=== PATIENT | female | born 1935 | race Caucasian/White ===

== ENCOUNTER 2018-08-15 12:50 | Inpatient (IN) ==
[2018-08-15] MEDS ORDERED: Acetaminophen 325 MG TABLET PO PRN (16:24)
[2018-08-15] MEDS ORDERED: Albuterol 2.5 MG/3 ML NEBULIZER IH PRN (16:24)
[2018-08-15] MEDS ORDERED: Darbepoetin 150 MCG/0.3 ML SYRINGE SQ SCH (16:30)
[2018-08-15] MEDS ORDERED: WATER IV SCH (18:00)
[2018-08-15] MEDS ORDERED: CEFAZOLIN SODIUM IV SCH (18:00)
[2018-08-15] MEDS ORDERED: [UNRECOGNIZED DRUG - OTHER] IV SCH (18:00)
[2018-08-15] MEDS: Furosemide 20 MG TABLET PO SCH (20:53)
[2018-08-15] MEDS: *HR* Warfarin 2.5 MG TABLET PO SCH (21:13)
[2018-08-15] MEDS: ceFAZolin 1,000 MG in Water for inj. (sterile) 20 ML 10 ML IVP SCH (21:15)
[2018-08-15] MEDS: MOMETASONE FUROATE 100 mcg Inhaler IH SCH (22:05)
[2018-08-16] MEDS: Ipratropium/Albuterol Neb 3 ML IH PRN (00:28)
[2018-08-16] MEDS: Furosemide 20 MG TABLET PO SCH ×2 (06:30→18:20)
[2018-08-16] MEDS: ceFAZolin 1,000 MG in Water for inj. (sterile) 20 ML 10 ML IVP SCH ×2 (08:55→20:44)
[2018-08-16] MEDS: Aspirin Enteric Coated 81 MG Tablet PO SCH (08:56)
[2018-08-16] MEDS: (Tiotropium Br/Olodaterol Hcl [Stiolto Respimat Inhal) IH SCH (08:57)
[2018-08-16] MEDS: Cholecalciferol (D-3) 1,000 UNIT TABLET PO SCH (08:57)
[2018-08-16] MEDS: Diltiazem CD (24hr) 120 MG CAPSULE PO SCH (08:57)
[2018-08-16] MEDS: MOMETASONE FUROATE 100 mcg Inhaler IH SCH ×2 (09:51→22:25)
[2018-08-16] MEDS ORDERED: ceFAZolin 1,000 MG in Water for inj. (sterile) 20 ML 10 ML IVP SCH (14:00)
--- NOTE | 2018-08-16 15:31 | Internal Med History&Physical ---
Date of Encounter: 08/16/18 Time of Encounter: 14:50 Assessment and Plan (1) MSSA bacteremia Current visit: No Status: Acute She has been ordered IV cefazolin every 12 hours to complete a four-week course ending 09/12/2018. Lactobacillus will be added. (2) Diastolic heart failure Current visit: No Status: Acute Continue Lasix and labetalol. BN peptide will be monitored. Qualifiers: Heart failure chronicity: acute on chronic Qualified Code(s): I50.33 - Acute on chronic diastolic (congestive) heart failure (3) Hypertension Current visit: No Status: Chronic Continue labetalol and diltiazem. Blood pressure will be monitored. Qualifiers: Hypertension type: essential hypertension Qualified Code(s): I10 - Essential (primary) hypertension (4) Acute kidney injury superimposed on CKD Current visit: No Status: Acute Monitor renal indices. (5) PAF (paroxysmal atrial fibrillation) Current visit: No Status: Acute Presently in NSR. Continue labetalol and warfarin. (6) Anemia Current visit: No Status: Acute Anemia testing last week showed iron 35, transferrin saturation 15%, transferrin 170, ferritin 648, B12 775, and folate 16.6. Anemia likely due to chronic kidney disease. Continue Aranesp. Qualifiers: Anemia type: unspecified type Qualified Code(s): D64.9 - Anemia, unspecified (7) Weight loss Current visit: Yes Status: Acute CT of chest abdomen and pelvis will be done to follow-up on previously seen abnormalities. TSH will be ordered. (8) Hyperphosphatemia Current visit: Yes Status: Acute Phosphorus level was significantly elevated at 8.0 on 08/10/2018. Recheck in a.m. (9) Hyperuricemia Current visit: Yes Status: Acute Uric acid level was elevated at 8.5 on 01/27/2018. Recheck in a.m. Internal Medicine - H&P: HPI Chief complaint: Pneumonia and heart failure Admitted From: Intrahospital Transfer Plans for Post Hospital Care: Home History of present illness: Ms. Staples is a 82 year old female who was hospitalized at [facility] August 06-August 15 after presenting with acute respiratory failure with pneumonia/hypoxemia and diastolic heart failure. Cardiology was consulted for elevated troponin and felt she had demand ischemia. Nephrology was consulted for acute on chronic renal failure. Blood cultures showed MSSA and infectious disease diet consultant recommended she have 4 weeks IV antibiotics. (2-D echo showed no vegetations.) She was admitted to [facility] swing bed for ongoing IV antibiotic therapy. Respiratory history is significant for diagnosis of "end-stage COPD". She reports being a lifelong nonsmoker. She has used oxygen at bedtime for several years. 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 She is known to have a large hiatal hernia and paraesophageal hernia involving a large portion of the left hemithorax with multiple loops of small bowel and colon in the hernia. Cardiothoracic surgery has deferred surgery due to her poor respiratory status. She has had multiple episodes of pneumonia felt to possibly be aspiration etiology. Cardiovascular history is significant for hypertension. Echocardiogram during her recent [facility] stay showed LVEF of 55-60%. The E/A ratio was 0.6 consistent with diastolic dysfunction. There was mild tricuspid regurgitation. Estimated RVSP was elevated at 43 mmHg. The interventricular septum and posterior wall thickness measurements were 1.10 and 1.40 cm respectively. She has no history of TN and heart catheter 11/15/2017 showed no significant CAD. She denies known DVT or pulmonary embolus. She was recently diagnosed with paroxysmal atrial fibrillation and was started on warfarin. Past Med Surg Social Fam HX - Past Medical History Medical history: arthritis, asthma, CHF, COPD, GERD, hypertension, renal disease Additional medical history: HERNIATED DISK, VOCAL CORD PARESIS,ANEMIA, CKD STAGE 3,SLEEP APNEA,DIASTOLIC HEART FAILURE Psychiatric history: no psych history - Past Surgical History Surgical History: cholecystectomy, hysterectomy, orthopedic, other Additional surgical history: RIGHT KNEE REPLACEMENT -2005, VOCAL CORD EXCISION 2006 - Social History Smoking Status: Never smoker Smokeless Tobacco Status: No Alcohol use: none Drug use: none - Family History Mother Living Status: Hx Family Cancer: Yes (pancreatic cancer) Internal Medicine - H&P: Meds Lansoprazole [Prevacid] 30 mg PO QAM 11/15/17 [History] Montelukast [Singulair] 10 mg PO QPM 11/15/17 [History] Paricalcitol [Zemplar] 1 mcg PO MOWEFR 11/15/17 [History] Albuterol Neb [Proventil Neb] 2.5 mg IH QID PRN 06/14/18 [History] Albuterol Sulfate [Proair Hfa] 2 puff IH QAM PRN 06/14/18 [History] Darbepoetin Edward in Polysorbat [Aranesp] 125 mcg IJ QMONTH 06/14/18 [History] Labetalol HCl 200 mg PO BID 06/14/18 [History] Tiotropium Br/Olodaterol HCl [Stiolto Respimat Inhal [place]] 2 puff IH DAILY 06/14/18 [History] Fluticasone Propionate [Flovent Hfa] 1 puff IH BID 08/06/18 [History] Acetaminophen [Tylenol] 650 mg PO Q6HR PRN tablet 08/15/18 [Rx] Aspirin Enteric Coated [Aspirin EC] 81 mg PO DAILY #0 tablet.dr 08/15/18 [Rx] Cefazolin Sodium/Water [Cefazolin 1 G/10 ml-Water Syrg] 1 gm IV Q12HR 28 Days #56 syringe 08/15/18 [Rx] Cholecalciferol (D-3) [Vitamin D] 1,000 unit PO DAILY tablet 08/15/18 [Rx] Diltiazem CD (24hr) [Cardizem CD] 120 mg PO DAILY #7 cap.er.24h 08/15/18 [Rx] Furosemide [Lasix] 20 mg PO Q12HR #14 tablet 08/15/18 [Rx] Guaifenesin [Mucinex] 600 mg PO Q12H PRN #14 tab.er.12h 08/15/18 [Rx] Ipratropium/Albuterol Neb [Duoneb] 3 ml IH [id number] PRN inhsol 08/15/18 [Rx] Warfarin [Coumadin] 2.5 mg PO 1800 #7 tablet 08/15/18 [Rx] Allergy/AdvReac Type Severity Reaction Status Date / Time Penicillins Allergy "I SWELL Verified 08/06/18 12:58 UP" All Systems PM: A 10-system review of systems was performed and is negative for pertinent findings except as documented above in the HPI. Review of systems: Gen.: Her weight has decreased from 58.6 kg on 12/20/2017 to 49.5 kg on admission now. Cardiovascular: As per history of present illness Respiratory: As per history of present illness GI: She had laparoscopic cholecystectomy a few months ago without complications. She has paraesophageal hernia as per history of present illness. She denies disorders of her liver or exocrine pancreas : She has chronic kidney disease and follows with a [place] public health advisor. She denies other kidney or bladder disorders Neurologic: She denies large distribution strokes or seizures. Endocrine: She denies diabetes thyroid disease or hyperlipidemia Hematology/oncology: She has chronic anemia without factor deficiency likely due to chronic kidney disease. She denies known internal malignancies. She was unaware that chest CT 04/24/2018 showed multiple pulmonary nodules and abnormality of the left hepatic lobe of the liver with possible mass and upper abdominal varices. Psychiatric: She denies anxiety depression or other mental health diagnoses [place] skeletal: She has DJD but denies gout. She had left total knee replacement approximately 2006. - Constitutional Vitals: Temp Pulse Resp BP Pulse Ox 98.2 F 82 18 127/66 97 08/16/18 07:41 08/16/18 07:41 08/16/18 09:53 08/16/18 07:41 08/16/18 09:53 Exam: Gen.: She is a well-developed well-nourished female lying in a recliner chair who appears dyspneic. She has broken speech due to the dyspnea. HEENT: Head is atraumatic and normocephalic. Eyes: EOMI. There is no scleral icterus. Mouth: Mucosa is moist. Neck: Supple and nontender. There is no thyromegaly or adenopathy noted. Heart: Regular without murmurs gallops or ectopics Lungs: She has inspiratory crackles that do not clear with coughing in the right base. There is no egophony. She has prolonged expiratory phase with minimal wheezing. Abdomen: Soft and nontender. No masses or guarding are noted. Extremities: She has significant DJD changes of her hands. She has 0 to trace edema bilaterally of the dorsum of the feet and lower legs. Dorsalis pedis and posterior tibial pulses are trace palpable. Neurologic: Mental status: She is talkative and a good historian. Cranial nerve s: Smile is symmetric. Forehead wrinkles bilaterally. Tongue protrudes midline. EOMI. Motor: There is no pronator drift. Cerebellar: Finger to nose is intact bilaterally. Skin: Warm and dry
[2018-08-16] MEDS: *HR* Warfarin 2.5 MG TABLET PO SCH (18:20)
[2018-08-16] MEDS: Lactobacillus 1 EACH CAP.SPRINK PO SCH (20:43)
[2018-08-17 06:20] LABS: Basophils % 0.1 %; Eosinophils # 0.6 K/mcL (0.0-0.6); Eosinophils % 4.4 %; Hemoglobin 7.6 g/dL (11.5-15.4); Immature Granulocytes % 4.8 % (0-4); Lymphocytes # 1.1 K/mcL (0.6-4.6); Mean Corpuscular HGB Conc 30.4 g/dL (31.6-35.5); Mean Corpuscular Hemoglobin 32.1 pg (28.0-33.3); Mean Corpuscular Volume 105.5 fL (83.0-100.0); Mean Platelet Volume 10.7 fL (9.4-12.4); Monocytes % 7.3 %; Neutrophils # 10.1 K/mcL (1.6-8.9); Platelet Count 327 K/mcL (140-400); Red Blood Count 2.37 M/mcL (3.82-4.97); Red Cell Distribution Width 14.9 % (11.5-14.5); Segmented Neutrophils % 75.4 %
[2018-08-17] MEDS: Furosemide 20 MG TABLET PO SCH ×2 (06:24→17:42)
[2018-08-17 06:41] LABS: INR 2.5; Prothrombin Time 28.5 Seconds (9.4-12.1)
[2018-08-17 06:47] LABS: Phosphorous 4.8 mg/dL (2.7-4.5)
[2018-08-17 07:00] LABS: Thyroid Stimulating Hormone 1.149 mcIU/mL (0.340-5.600)
[2018-08-17] MEDS: Cholecalciferol (D-3) 1,000 UNIT TABLET PO SCH (08:43)
[2018-08-17] MEDS: ceFAZolin 1,000 MG in Water for inj. (sterile) 20 ML 10 ML IVP SCH ×2 (08:43→20:48)
[2018-08-17] MEDS: Lactobacillus 1 EACH CAP.SPRINK PO SCH ×2 (08:44→20:48)
[2018-08-17] MEDS: Diltiazem CD (24hr) 120 MG CAPSULE PO SCH (08:44)
[2018-08-17] MEDS: Aspirin Enteric Coated 81 MG Tablet PO SCH (08:44)
[2018-08-17] MEDS: (Tiotropium Br/Olodaterol Hcl [Stiolto Respimat Inhal) IH SCH (08:44)
--- NOTE | 2018-08-17 10:33 | Internal Med Progress Note ---
Date of Encounter: 08/17/18 Time of Encounter: 10:25 - Assessment and plan (1) MSSA bacteremia Current Visit: No Status: Acute Assessment and plan: August 17. Continue IV Kefzol and lactobacillus through 09/12/2018. (2) Diastolic heart failure Current Visit: No Status: Acute Assessment and plan: August 17. Continue Lasix and labetalol. BN peptide was 202 today. Qualifiers: Heart failure chronicity: acute on chronic Qualified Code(s): I50.33 - Acute on chronic diastolic (congestive) heart failure (3) Hypertension Current Visit: No Status: Chronic Assessment and plan: August 17. Continue labetalol and diltiazem Qualifiers: Hypertension type: essential hypertension Qualified Code(s): I10 - Essential (primary) hypertension (4) Acute kidney injury superimposed on CKD Current Visit: No Status: Acute Assessment and plan: August 17. Monitor renal indices. (5) PAF (paroxysmal atrial fibrillation) Current Visit: No Status: Acute Assessment and plan: August 17. Continue labetalol and Coumadin (6) Anemia Current Visit: No Status: Acute Assessment and plan: August 17. Continue Aranesp. Discontinue aspirin. She denies being on this at home. Qualifiers: Anemia type: unspecified type Qualified Code(s): D64.9 - Anemia, unspecified (7) Weight loss Current Visit: Yes Status: Acute Assessment and plan: August 17. Chest/abdomen/pelvis CT showed no evidence of malignancy. TSH was normal at 1.149. (8) Hyperphosphatemia Current Visit: Yes Status: Acute Assessment and plan: August 17. Phosphorus level minimally elevated at 4.8. Continue to monitor periodically. (9) Hyperuricemia Current Visit: Yes Status: Acute Assessment and plan: August 17. Uric acid level elevated at 10.0. Start low-dose allopurinol (10) Pneumonia Current Visit: No Status: Acute Assessment and plan: August 17. Chest CT showed improvement in the mid and upper lungs but worsening consolidation of the right lower lobe compared to 09/04/2018. Continue IV Kefzol and monitor labs. Qualifiers: Pneumonia type: aspiration pneumonia Aspiration pneumonia type: due to regurgitated food Laterality: right Lung location: lower lobe of lung Qualified Code(s): J69.0 - Pneumonitis due to inhalation of food and vomit - Subjective Interval history: August 17. She has no new complaints. - Constitutional Vitals: Temp Pulse Resp BP Pulse Ox 98.4 F 76 28 110/64 92 08/17/18 06:46 08/17/18 06:46 08/17/18 06:46 08/17/18 06:46 08/17/18 06:46 Exam: She is resting comfortably in a chair at bedside wearing oxygen. Her speech is broken because of dyspnea. I reviewed her medications, lab results, and CT report. Internal Medicine: Result - Labs CBC & Chem 7: 08/17/18 05:30 Labs: Short CBC 08/17/18 Range/Units 05:30 WBC 13.4 H (4.3-11.1) K/mcL Hgb 7.6 L (11.5-15.4) g/dL Hct 25.0 L (35.3-44.9) % Plt Count 327 (140-400) K/mcL Neutrophils # 10.1 H (1.6-8.9) K/mcL - ABG Interpretation ABG results: PT/INR, D-dimer PT 28.5 Seconds (9.4-12.1) H 08/17/18 05:30 - Impressions Impressions Abdomen/Pelvis CT 08/16/18 15:47 IMPRESSION: No acute abnormality in the abdomen or pelvis. Lobulation at the dome of the liver, likely related to indentation by the diaphragm. No discrete liver mass. Bilateral renal cysts, with the largest measuring up to 8 cm in the right kidney. These findings are benign. Airspace opacities at the right lung base, likely related to pneumonia versus pulmonary edema, mildly increased since August 05, 2018 at the right lung base. Large hiatal hernia and large paraesophageal hernia containing loops of small and large bowel occupying large portion of the left hemithorax, with rightward displacement of the heart, stable. Prominent main pulmonary artery size, likely related to pulmonary hypertension. D/ / Moses Grigsby MD / Moses Grigsby MD Interpreting Provider: Moses Grigsby MD Chest CT 08/16/18 15:48 IMPRESSION: Large left diaphragmatic hernia again noted. Patchy regions of consolidation and ground-glass appear improved in the mid and upper lungs but there is worsening consolidation the right lower lobe. D/ / Wanda Tracy MD / Wanda Tracy MD Interpreting Provider: Wanda Tracy MD Consult Discharge Plan - Plan Referrals: NONE,PCP [Primary Care Provider] - 1 week
[2018-08-17] MEDS: MOMETASONE FUROATE 100 mcg Inhaler IH SCH ×2 (11:09→22:43)
[2018-08-17] MEDS: Ipratropium/Albuterol Neb 3 ML IH PRN (17:39)
[2018-08-17] MEDS: *HR* Warfarin 2.5 MG TABLET PO SCH (17:45)
[2018-08-18] MEDS: (Tiotropium Br/Olodaterol Hcl [Stiolto Respimat Inhal) IH SCH (09:38)
[2018-08-18] MEDS: Cholecalciferol (D-3) 1,000 UNIT TABLET PO SCH (09:38)
[2018-08-18] MEDS: Diltiazem CD (24hr) 120 MG CAPSULE PO SCH (09:38)
[2018-08-18] MEDS: Lactobacillus 1 EACH CAP.SPRINK PO SCH ×2 (09:38→20:37)
[2018-08-18] MEDS: Furosemide 20 MG TABLET PO SCH ×2 (09:38→18:23)
[2018-08-18] MEDS: ceFAZolin 1,000 MG in Water for inj. (sterile) 20 ML 10 ML IVP SCH ×2 (09:39→20:38)
[2018-08-18] MEDS: MOMETASONE FUROATE 100 mcg Inhaler IH SCH ×2 (13:55→22:58)
[2018-08-18] MEDS: *HR* Warfarin 2.5 MG TABLET PO SCH (18:23)
[2018-08-19] MEDS: Furosemide 20 MG TABLET PO SCH ×2 (06:52→17:50)
[2018-08-19] MEDS: Lactobacillus 1 EACH CAP.SPRINK PO SCH ×2 (10:00→20:31)
[2018-08-19] MEDS: (Tiotropium Br/Olodaterol Hcl [Stiolto Respimat Inhal) IH SCH (10:01)
[2018-08-19] MEDS: Diltiazem CD (24hr) 120 MG CAPSULE PO SCH (10:01)
[2018-08-19] MEDS: Cholecalciferol (D-3) 1,000 UNIT TABLET PO SCH (10:01)
[2018-08-19] MEDS: ceFAZolin 1,000 MG in Water for inj. (sterile) 20 ML 10 ML IVP SCH ×2 (10:03→20:32)
[2018-08-19] MEDS: MOMETASONE FUROATE 100 mcg Inhaler IH SCH ×2 (10:04→22:54)
[2018-08-19] MEDS: Ondansetron ODT 4 MG TAB.RAPDIS SL PRN ×2 (12:50→17:55)
[2018-08-19] MEDS: *HR* Warfarin 2.5 MG TABLET PO SCH (17:50)
[2018-08-20] MEDS: Furosemide 20 MG TABLET PO SCH ×2 (05:26→17:10)
[2018-08-20 07:54] VITALS: BP 111/59
[2018-08-20] MEDS: Ipratropium/Albuterol Neb 3 ML IH PRN (09:29)
[2018-08-20] MEDS: MOMETASONE FUROATE 100 mcg Inhaler IH SCH (09:32)
[2018-08-20] MEDS: ceFAZolin 1,000 MG in Water for inj. (sterile) 20 ML 10 ML IVP SCH (09:37)
[2018-08-20] MEDS: Diltiazem CD (24hr) 120 MG CAPSULE PO SCH (09:37)
[2018-08-20] MEDS: Lactobacillus 1 EACH CAP.SPRINK PO SCH (09:37)
[2018-08-20] MEDS: Cholecalciferol (D-3) 1,000 UNIT TABLET PO SCH (09:37)
[2018-08-20] MEDS: (Tiotropium Br/Olodaterol Hcl [Stiolto Respimat Inhal) IH SCH (09:38)
[2018-08-20 10:23] LABS: Basophils % 0.1 %; Eosinophils # 0.2 K/mcL (0.0-0.6); Eosinophils % 1.3 %; Hematocrit 24.5 % (35.3-44.9); Hemoglobin 7.5 g/dL (11.5-15.4); Immature Granulocytes % 1.5 % (0-4); Lymphocytes # 0.9 K/mcL (0.6-4.6); Lymphocytes % 5.9 %; Mean Corpuscular HGB Conc 30.6 g/dL (31.6-35.5); Mean Corpuscular Hemoglobin 31.9 pg (28.0-33.3); Mean Corpuscular Volume 104.3 fL (83.0-100.0); Mean Platelet Volume 10.1 fL (9.4-12.4); Monocytes # 1.3 K/mcL (0.0-1.3); Monocytes % 8.4 %; Platelet Count 346 K/mcL (140-400); Red Blood Count 2.35 M/mcL (3.82-4.97); Red Cell Distribution Width 14.4 % (11.5-14.5); Segmented Neutrophils % 82.8 %
[2018-08-20 10:27] LABS: Neutrophils # 13.2 K/mcL (1.6-8.9)
[2018-08-20 10:31] LABS: Calcium 9.5 mg/dL (8.6-10.3); Potassium 3.9 mEq/L (3.5-5.1)
[2018-08-20 11:49] LABS: INR 3.3; Prothrombin Time 37.3 Seconds (9.4-12.1)
[2018-08-20] MEDS ORDERED: Aminoglycoside Consult 1 EACH MC ONE (12:00)
[2018-08-20] MEDS ORDERED: Levofloxacin 750 MG/150 ML 750 MG/150 ML BAG IVPB SCH (12:00)
--- NOTE | 2018-08-20 16:03 | Discharge Summary ---
Orders not resulted at time of discharge: Pending orders 08/20/18 10:50 Urinalysis Reflex Cult & Micro [URIN] Stat 08/20/18 11:26 Culture,Blood [BC] Stat Date of Encounter: 08/20/18 Time of Encounter: 15:00 - Discharge Diagnosis (1) Pneumonia Priority: Primary Status: Acute Qualifiers: Pneumonia type: aspiration pneumonia Aspiration pneumonia type: due to regurgitated food Laterality: right Lung location: lower lobe of lung Qualified Code(s): J69.0 - Pneumonitis due to inhalation of food and vomit (2) MSSA bacteremia Priority: Secondary Status: Acute (3) Diastolic heart failure Priority: Secondary Status: Acute Qualifiers: Heart failure chronicity: acute on chronic Qualified Code(s): I50.33 - Acute on chronic diastolic (congestive) heart failure (4) Hypertension Priority: Secondary Status: Chronic Qualifiers: Hypertension type: essential hypertension Qualified Code(s): I10 - Essential (primary) hypertension (5) Acute kidney injury superimposed on CKD Priority: Secondary Status: Acute (6) PAF (paroxysmal atrial fibrillation) Priority: Secondary Status: Acute (7) Anemia Priority: Secondary Status: Acute Qualifiers: Anemia type: unspecified type Qualified Code(s): D64.9 - Anemia, unspecified (8) Weight loss Priority: Secondary Status: Chronic (9) Hyperphosphatemia Priority: Secondary Status: Acute (10) Hyperuricemia Priority: Secondary Status: Acute Hospital course: Ms. Staples is a 82 year old female who was hospitalized at [facility] August 06-August 15 after presenting with acute respiratory failure with pneumonia/hypoxemia and diastolic heart failure. Cardiology was consulted for elevated troponin and felt she had demand ischemia. Nephrology was consulted for acute on chronic renal failure. Blood cultures showed MSSA and infectious disease middleware consultant recommended she have 4 weeks IV antibiotics. (2-D echo showed no vegetations.) She was admitted to [facility] swing bed for ongoing IV antibiotic therapy. Initial orders were written by the discharging physicians at [facility]. I saw her on August 16 and performed the swing bed history and physical. IV Ancef and lactobacillus were continued as ordered at discharge. Chest CT was done on August 16 to further evaluate her reported 20 pound weight loss, previously seen lung nodules and possible liver mass. There was patchy consolidation improved in the mid and upper lung but worsening consolidation of the right lower lobe. No liver mass was seen. On August 20 she developed worsening respiratory status. WBC showed rise to 15.9 with left shift present. Chest x-ray showed moderate diffuse airspace opacities throughout the right lung as well as left upper lobe. Cultures were drawn and she was started on vancomycin and Levaquin in addition to Ancef. She required BiPAP to maintain satisfactory oxygenation. I explained to her that I felt she needed to be transferred to a different facility if she chose to remain full code because of potential further worsening of her respiratory status. After deliberation and discussion with family she agreed to go to [facility]. I explained to her she could likely return to [facility] for swing bed to complete the course of IV Ancef for MSSA after improvement from her pneumonia. - Time Spent with Patient Total time spent providing and/or coordinating discharge services: - Discharge Medications Prescriptions: No Action Montelukast [Singulair] 10 mg PO QPM Lansoprazole [Prevacid] 30 mg PO QAM Paricalcitol [Zemplar] 1 mcg PO MOWEFR Albuterol Neb [Proventil Neb] 2.5 mg IH QID PRN PRN Reason: Shortness Of Breath Labetalol HCl 200 mg PO BID Tiotropium Br/Olodaterol HCl [Stiolto Respimat Inhal [place]] 2 puff IH DAILY Albuterol Sulfate [Proair Hfa] 2 puff IH QAM PRN PRN Reason: Shortness Of Breath Darbepoetin Edward in Polysorbat [Aranesp] 125 mcg IJ QMONTH Fluticasone Propionate [Flovent Hfa] 1 puff IH BID Aspirin Enteric Coated [Aspirin EC] 81 mg PO DAILY #0 tablet. Diltiazem CD (24hr) [Cardizem CD] 120 mg PO DAILY #7 cap.er.24h Warfarin [Coumadin] 2.5 mg PO 1800 #7 tablet Ipratropium/Albuterol Neb [Duoneb] 3 ml IH [id number] PRN inhsol PRN Reason: Wheezing Furosemide [Lasix] 20 mg PO Q12HR #14 tablet Acetaminophen [Tylenol] 650 mg PO Q6HR PRN tablet PRN Reason: Mild Pain/Fever Cholecalciferol (D-3) [Vitamin D] 1,000 unit PO DAILY tablet Guaifenesin [Mucinex] 600 mg PO Q12H PRN #14 tab.er.12h PRN Reason: Congestion Cefazolin Sodium/Water [Cefazolin 1 G/10 ml-Water Syrg] 1 gm IV Q12HR 28 Days #56 syringe Home Medications: Lansoprazole [Prevacid] 30 mg PO QAM 11/15/17 [History] Montelukast [Singulair] 10 mg PO QPM 11/15/17 [History] Paricalcitol [Zemplar] 1 mcg PO MOWEFR 11/15/17 [History] Albuterol Neb [Proventil Neb] 2.5 mg IH QID PRN 06/14/18 [History] Albuterol Sulfate [Proair Hfa] 2 puff IH QAM PRN 06/14/18 [History] Darbepoetin Edward in Polysorbat [Aranesp] 125 mcg IJ QMONTH 06/14/18 [History] Labetalol HCl 200 mg PO BID 06/14/18 [History] Tiotropium Br/Olodaterol HCl [Stiolto Respimat Inhal [place]] 2 puff IH DAILY 06/14/18 [History] Fluticasone Propionate [Flovent Hfa] 1 puff IH BID 08/06/18 [History] Acetaminophen [Tylenol] 650 mg PO Q6HR PRN tablet 08/15/18 [Rx] Aspirin Enteric Coated [Aspirin EC] 81 mg PO DAILY #0 tablet. 08/15/18 [Rx] Cefazolin Sodium/Water [Cefazolin 1 G/10 ml-Water Syrg] 1 gm IV Q12HR 28 Days #56 syringe 08/15/18 [Rx] Cholecalciferol (D-3) [Vitamin D] 1,000 unit PO DAILY tablet 08/15/18 [Rx] Diltiazem CD (24hr) [Cardizem CD] 120 mg PO DAILY #7 cap.er.24h 08/15/18 [Rx] Furosemide [Lasix] 20 mg PO Q12HR #14 tablet 08/15/18 [Rx] Guaifenesin [Mucinex] 600 mg PO Q12H PRN #14 tab.er.12h 08/15/18 [Rx] Ipratropium/Albuterol Neb [Duoneb] 3 ml IH [id number] PRN inhsol 08/15/18 [Rx] Warfarin [Coumadin] 2.5 mg PO 1800 #7 tablet 08/15/18 [Rx] Allergies/Adverse Reactions: Allergy/AdvReac Type Severity Reaction Status Date / Time Penicillins Allergy "I SRIDHARLL Verified 08/06/18 12:58 UP" Date of admission: 08/15/18 17:54 Primary care physician: Trevin Garcia M.D. Consults: 08/15/18 16:20 Consult to Speech Therapy [CONS] Routine Comment: Evaluate, develop and implement POC Reason for Consult: Evaluate, develop and implement POC Call Completed: No 08/15/18 16:21 Consult to Occupational Therapy [CONS] Routine Comment: Evaluate, develop and implement POC Reason for Consult: Evaluate, develop and implement POC Does patient have active BEDREST order?: No Is patient medically & hemodynamically stable?: Yes Patient assessed for mobility or mobilized this visit?: No Consult to Physical Therapy [CONS] Routine Comment: Evaluate, develop and implement POC Reason for Consult: Evaluate, develop and implement POC Does patient have active BEDREST order?: No Is patient medically & hemodynamically stable?: Yes Patient assessed for mobility or mobilized this visit?: No Consult to Furniture Associate [CONS] Routine Reason for SW Consult: swing bed 08/15/18 18:23 Consult to Nutrition [CONS] Routine Comment: Consulting Provider: NUTRITION Reason for Dietary Consult: MST Score - Constitutional Vitals: Temp Pulse Resp BP Pulse Ox 99.4 F 78 22 111/59 92 08/20/18 07:53 08/20/18 07:53 08/20/18 09:29 08/20/18 07:53 08/20/18 10:08 - Patient Status Disposition: Transfer Other - Discharge Instructions
[2018-08-20] MEDS: *HR* Warfarin 2.5 MG TABLET PO SCH (17:10)
[2018-08-27] MEDS ORDERED: Darbepoetin 150 MCG/0.3 ML SYRINGE SQ SCH (09:00)
== END 2018-08-20 18:10 | disposition other institution (70) | DRG 177 ==
LOC: INPPIK 17:54
PROVIDERS: ADMIT Internal Medicine; ATTEND Internal Medicine

== ENCOUNTER 2018-08-23 13:32 | Inpatient (IN) ==
[2018-08-23] MEDS ORDERED: Acetaminophen 325 MG TABLET PO PRN (16:13)
[2018-08-23] MEDS ORDERED: DARBEPOETIN ALFA IJ SCH (16:15)
[2018-08-23] MEDS ORDERED: levoFLOXacin 500 MG TABLET PO SCH (16:15)
[2018-08-23] MEDS ORDERED: [UNRECOGNIZED DRUG - OTHER] IJ SCH (16:15)
[2018-08-23] MEDS ORDERED: CEFAZOLIN SODIUM IV SCH (18:00)
[2018-08-23] MEDS ORDERED: WATER IV SCH (18:00)
[2018-08-23] MEDS ORDERED: [UNRECOGNIZED DRUG - OTHER] IV SCH (18:00)
[2018-08-23] MEDS: ceFAZolin 1,000 MG in Water for inj. (sterile) 20 ML 10 ML IVP SCH (18:39)
[2018-08-23] MEDS: Furosemide 20 MG TABLET PO SCH (18:39)
[2018-08-23] MEDS: *HR* Warfarin 2.5 MG TABLET PO SCH (18:39)
[2018-08-23] MEDS ORDERED: NON-FORMULARY MEDICATION 1 EACH EACH (Fluticasone Propionate [Flovent Hfa] 1 PUFF) IH SCH (21:00)
[2018-08-23] MEDS: MOMETASONE FUROATE 100 mcg Inhaler IH SCH (22:23)
[2018-08-24 05:30] LABS: Basophils % 0.1 %; Hematocrit 24.2 % (35.3-44.9); Hemoglobin 7.7 g/dL (11.5-15.4); Immature Granulocytes % 1.6 % (0-4); Lymphocytes # 0.7 K/mcL (0.6-4.6); Lymphocytes % 3.4 %; Mean Corpuscular HGB Conc 31.8 g/dL (31.6-35.5); Mean Corpuscular Hemoglobin 31.8 pg (28.0-33.3); Mean Platelet Volume 10.2 fL (9.4-12.4); Monocytes # 0.5 K/mcL (0.0-1.3); Monocytes % 2.5 %; Platelet Count 256 K/mcL (140-400); Red Blood Count 2.42 M/mcL (3.82-4.97); Red Cell Distribution Width 15.3 % (11.5-14.5); Segmented Neutrophils % 92.4 %
[2018-08-24 05:36] LABS: Neutrophils # 17.6 K/mcL (1.6-8.9)
[2018-08-24 05:44] LABS: INR 3.3; Prothrombin Time 37.2 Seconds (9.4-12.1)
[2018-08-24 05:46] LABS: Activated Partial Thrombo Time 44.2 Seconds (26.0-36.0)
[2018-08-24 05:56] LABS: Calcium 8.8 mg/dL (8.6-10.3)
[2018-08-24] MEDS: ceFAZolin 1,000 MG in Water for inj. (sterile) 20 ML 10 ML IVP SCH ×2 (06:24→17:29)
[2018-08-24] MEDS: Furosemide 20 MG TABLET PO SCH (06:25)
[2018-08-24] MEDS: Ipratropium/Albuterol Neb 3 ML IH PRN ×2 (07:41→23:45)
[2018-08-24] MEDS: MOMETASONE FUROATE 100 mcg Inhaler IH SCH ×2 (07:41→21:11)
[2018-08-24] MEDS: Aspirin Enteric Coated 81 MG Tablet PO SCH (08:59)
[2018-08-24] MEDS: Cholecalciferol (D-3) 1,000 UNIT TABLET PO SCH (08:59)
[2018-08-24] MEDS: Diltiazem CD (24hr) 120 MG CAPSULE PO SCH (08:59)
[2018-08-24] MEDS: predniSONE 10 MG TABLET PO SCH (08:59)
[2018-08-24] MEDS ORDERED: predniSONE 10 MG TABLET PO SCH ×2 (09:00)
--- NOTE | 2018-08-24 11:29 | Internal Med History&Physical ---
Date of Encounter: 08/24/18 Time of Encounter: 11:00 Assessment and Plan (1) MSSA bacteremia Current visit: No Status: Acute Continue IV Kefzol with lactobacillus through 09/12/2018. (2) Pneumonia Current visit: No Status: Acute Continue Levaquin 500 milligrams q48h through 08/30/2018. Qualifiers: Pneumonia type: aspiration pneumonia Aspiration pneumonia type: due to regurgitated food Laterality: right Lung location: lower lobe of lung Qualified Code(s): J69.0 - Pneumonitis due to inhalation of food and vomit (3) Diastolic heart failure Current visit: No Status: Acute Continue labetalol and remain off Lasix. BN peptide improved to 317 today. Continue to monitor. Qualifiers: Heart failure chronicity: acute on chronic Qualified Code(s): I50.33 - Acute on chronic diastolic (congestive) heart failure (4) Hypertension Current visit: No Status: Chronic Continue labetalol and diltiazem. Qualifiers: Hypertension type: essential hypertension Qualified Code(s): I10 - Essential (primary) hypertension (5) Acute kidney injury superimposed on CKD Current visit: No Status: Acute Monitor renal indices. (6) PAF (paroxysmal atrial fibrillation) Current visit: No Status: Acute Presently in NSR. Continue labetalol and warfarin. (7) Anemia Current visit: No Status: Acute Anemia testing in July showed iron 35, transferrin saturation 15%, transferrin 170, ferritin 648, B12 775, and folate 16.6. Anemia likely due to chronic kidney disease. Continue Aranesp. Qualifiers: Anemia type: unspecified type Qualified Code(s): D64.9 - Anemia, unspecified (8) Hyperuricemia Current visit: No Status: Acute Uric acid level was 10.0 on 08/17/2018. Continue allopurinol. Internal Medicine - H&P: HPI Chief complaint: Dyspnea, MSSA infection Admitted From: Hospital to Hospital Transfer Plans for Post Hospital Care: Home History of present illness: Ms. Staples is a 82 year old female who returned to [facility] swing bed yesterday following a August 20- hospitalization at [facility] for worsening respiratory status. She had previously been in [facility] swing bed August 16- following an [facility] hospitalization August 06-August 16 for respiratory failure, pneumonia hypoxemia, and diastolic heart failure. During her most recent [facility] stay she had pulmonary consult with bronchoscopy 08/22/2018 showing possible aspiration but no significant infection. She was discharged on oral Levaquin in addition to ongoing IV Kefzol for MSSA infection documented on previous [facility] hospitalization. She was seen by nephrology for worsening renal function and it was recommended Lasix be discontinued. Past Med Surg Social Fam HX - Past Medical History Medical history: arthritis, asthma, CHF, COPD, GERD, hypertension, renal disease Additional medical history: HERNIATED DISK, VOCAL CORD PARESIS,ANEMIA, CKD STAGE 3,SLEEP APNEA,DIASTOLIC HEART FAILURE Psychiatric history: no psych history - Past Surgical History Surgical History: cholecystectomy, hysterectomy, orthopedic, other Additional surgical history: RIGHT KNEE REPLACEMENT -2005, VOCAL CORD EXCISION 2006 - Social History Smoking Status: Never smoker Smokeless Tobacco Status: No Alcohol use: none Drug use: none - Family History Mother Living Status: Hx Family Cancer: Yes (pancreatic cancer) Internal Medicine - H&P: Meds Lansoprazole [Prevacid] 30 mg PO QAM 11/15/17 [History] Montelukast [Singulair] 10 mg PO QPM 11/15/17 [History] Paricalcitol [Zemplar] 1 mcg PO MOWEFR 11/15/17 [History] Albuterol Neb [Proventil Neb] 2.5 mg IH QID PRN 06/14/18 [History] Albuterol Sulfate [Proair Hfa] 2 puff IH Q6H PRN 06/14/18 [History] Darbepoetin Edward in [place]ysorbat [Aranesp] 125 mcg IJ QMONTH 06/14/18 [History] Labetalol HCl 200 mg PO BID 06/14/18 [History] Tiotropium Br/Olodaterol HCl [Stiolto Respimat Inhal Drayton] 2 puff IH DAILY 06/14/18 [History] Fluticasone Propionate [Flovent Hfa] 1 puff IH BID 08/06/18 [History] Acetaminophen [Tylenol] 650 mg PO Q6HR PRN tablet 08/15/18 [Rx] Aspirin Enteric Coated [Aspirin EC] 81 mg PO DAILY #0 tablet. 08/15/18 [Rx] Cefazolin Sodium/Water [Cefazolin 1 G/10 ml-Water Syrg] 1 gm IV Q12HR 28 Days #56 syringe 08/15/18 [Rx] Cholecalciferol (D-3) [Vitamin D] 1,000 unit PO DAILY tablet 08/15/18 [Rx] Diltiazem CD (24hr) [Cardizem CD] 120 mg PO DAILY #7 cap.er.24h 08/15/18 [Rx] Furosemide [Lasix] 20 mg PO Q12HR #14 tablet 08/15/18 [Rx] Guaifenesin [Mucinex] 600 mg PO Q12H PRN #14 tab.er.12h 08/15/18 [Rx] Ipratropium/Albuterol Neb [Duoneb] 3 ml IH [id number] PRN inhsol 08/15/18 [Rx] Warfarin [Coumadin] 2.5 mg PO 1800 #7 tablet 08/15/18 [Rx] levoFLOXacin [Levaquin] 500 mg PO Q48H #4 tablet 08/23/18 [Rx] predniSONE [PredniSONE] See Taper PO DAILY 7 Days #30 tablet 08/23/18 [Rx] Allergy/AdvReac Type Severity Reaction Status Date / Time Penicillins Allergy "I SRIDHARLL Verified 08/06/18 12:58 UP" All Systems PM: A 10-system review of systems was performed and is negative for pertinent findings except as documented above in the HPI. Review of systems: Review of systems from her recent [facility] swing bed admission were reviewed and revised as below. Gen.: Her weight has increased from 58.6 kg on 12/20/2017 to 59.137 kg on admission now. Cardiovascular: She has history of hypertension. Echocardiogram 08/06/2018 showed LVEF of 55-60%. The E/A ratio was 0.6 consistent with diastolic dysfunction. There was mild tricuspid regurgitation. Estimated RVSP was elevated at 43 mmHg. The interventricular septum and posterior wall thickness measurements were 1.10 and 1.40 cm respectively. She has no history of SC and heart catheter 11/15/2017 showed no significant CAD. She denies known DVT or pulmonary embolus. She was recently diagnosed with paroxysmal atrial fibrillation and was started on warfarin. Respiratory: She has a diagnosis of "end-stage COPD". She reports being a lifelong nonsmoker. She has used oxygen at bedtime for several years. 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 She is known to have a large hiatal hernia and paraesophageal hernia involving a large portion of the left hemithorax with multiple loops of small bowel and colon in the hernia. Cardiothoracic surgery has deferred surgery due to her poor respiratory status. She has had multiple episodes of pneumonia felt to possibly be aspiration etiology. Chest CT 08/15/2018 showed patchy consolidation and groundglass appearance improved in the mid and upper lungs but worsening consolidation of the right lower lobe compared to 08/05/2018 CT. Large left diaphragmatic hernia was noted. No worrisome masses or lymphadenopathy was seen. GI: She had laparoscopic cholecystectomy a few months ago without complications. She has a paraesophageal hernia as above. She denies disorders of her liver or exocrine pancreas : She has chronic kidney disease and follows with a [employer] band cutter. She denies other kidney or bladder disorders Neurologic: She denies large distribution strokes or seizures. Endocrine: She denies diabetes thyroid disease or hyperlipidemia Hematology/oncology: She has chronic anemia without factor deficiency likely due to chronic kidney disease. She denies known internal malignancies. Psychiatric: She denies anxiety depression or other mental health diagnoses [place] skeletal: She has DJD but denies gout. She had left total knee replacement approximately 2006. - Constitutional Vitals: Temp Pulse Resp BP Pulse Ox 97.5 F L 72 18 133/76 97 08/24/18 07:32 08/24/18 07:32 08/24/18 07:42 08/24/18 07:32 08/24/18 07:42 Exam: Gen.: She is a well-developed well-nourished female sitting in a chair at bedside who appears slightly dyspneic. She was wearing oxygen by mask HEENT: Head is atraumatic and normocephalic. Eyes: EOMI. There is no scleral icterus. Mouth: Mucosa is moist. Neck: Supple and nontender. There is no thyromegaly or adenopathy noted. Heart: Regular without murmurs gallops or ectopics Lungs: She has diminished breath sounds diffusely. The right posterior lung field shows tubular breath sounds. No expiratory wheezing is heard. Abdomen: Soft and nontender. Exam is limited because she is in the seated posi tion. Extremities: She has no edema of the dorsum of the feet. She has 1+ edema of the lower legs above the sock margin. Dorsalis pedis and posterior tibial pulses are trace to 1+ palpable bilaterally. She has significant DJD changes of her hands. Neurologic: Mental status: She is talkative and seems to be a good historian. Cranial nerves: Smile is symmetric. Forehead wrinkles bilaterally. Tongue protrudes midline. EOMI. Motor: There is no pronator drift. Cerebellar: Finger to nose is intact bilaterally. Skin: Warm and dry Internal Med - H&P Results - Labs CBC & Chem 7: 08/24/18 05:00 08/24/18 05:00 Labs: Short CBC 08/24/18 Range/Units 05:00 WBC 19.0 H (4.3-11.1) K/mcL Hgb 7.7 L (11.5-15.4) g/dL Hct 24.2 L (35.3-44.9) % Plt Count 256 (140-400) K/mcL Neutrophils # 17.6 H (1.6-8.9) K/mcL BMP 08/24/18 05:00 Sodium 138 Potassium 4.0 Chloride 96 L Carbon Dioxide 32 H BUN 114 H Creatinine 3.37 H Glucose 129 H Calcium 8.8
[2018-08-24] MEDS: Tiotropium Br/Olodaterol Hcl [Stiolto Respimat Inhal IH SCH (11:33)
[2018-08-24] MEDS: Lactobacillus 1 EACH CAP.SPRINK PO SCH (19:30)
[2018-08-25] MEDS: ceFAZolin 1,000 MG in Water for inj. (sterile) 20 ML 10 ML IVP SCH ×2 (06:44→17:11)
[2018-08-25] MEDS: MOMETASONE FUROATE 100 mcg Inhaler IH SCH ×2 (09:30→19:33)
[2018-08-25] MEDS: Ipratropium/Albuterol Neb 3 ML IH PRN ×2 (09:33→13:24)
[2018-08-25] MEDS: Cholecalciferol (D-3) 1,000 UNIT TABLET PO SCH (09:56)
[2018-08-25] MEDS: predniSONE 10 MG TABLET PO SCH (09:56)
[2018-08-25] MEDS: Lactobacillus 1 EACH CAP.SPRINK PO SCH ×2 (09:56→20:58)
[2018-08-25] MEDS: Aspirin Enteric Coated 81 MG Tablet PO SCH (09:57)
[2018-08-25] MEDS: Diltiazem CD (24hr) 120 MG CAPSULE PO SCH (09:57)
[2018-08-25] MEDS: levoFLOXacin 500 MG TABLET PO SCH (09:57)
[2018-08-25] MEDS: Tiotropium Br/Olodaterol Hcl [Stiolto Respimat Inhal IH SCH (16:31)
--- NOTE | 2018-08-25 18:51 | Internal Med Progress Note ---
Date of Encounter: 08/25/18 Time of Encounter: 18:40 - Assessment and plan (1) MSSA bacteremia Current Visit: No Status: Acute Assessment and plan: August 25. Continue IV With Lactobacillus through 09/12/2018. (2) Pneumonia Current Visit: No Status: Acute Assessment and plan: August 25. Continue q.o.d. Levaquin through 08/30/2018. Qualifiers: Pneumonia type: aspiration pneumonia Aspiration pneumonia type: due to regurgitated food Laterality: right Lung location: lower lobe of lung Qualified Code(s): J69.0 - Pneumonitis due to inhalation of food and vomit (3) Diastolic heart failure Current Visit: No Status: Acute Assessment and plan: August 25. Continue labetalol and remain off Lasix due to acute on chronic renal failure. Check BN peptide and other labs in a.m. Qualifiers: Heart failure chronicity: acute on chronic Qualified Code(s): I50.33 - Acute on chronic diastolic (congestive) heart failure (4) Hypertension Current Visit: No Status: Chronic Assessment and plan: August 25. Continue labetalol and diltiazem Qualifiers: Hypertension type: essential hypertension Qualified Code(s): I10 - Essential (primary) hypertension (5) Acute kidney injury superimposed on CKD Current Visit: No Status: Acute Assessment and plan: August 25. Monitor renal indices. (6) PAF (paroxysmal atrial fibrillation) Current Visit: No Status: Acute Assessment and plan: August 25. Continue labetalol and warfarin. (7) Anemia Current Visit: No Status: Acute Assessment and plan: August 25. Anemia testing in July showed iron 35, transferrin saturation 15%, transferrin 170, ferritin 648, B12 775, and folate 16.6. Anemia likely due to chronic kidney disease. Continue Aranesp. Qualifiers: Anemia type: unspecified type Qualified Code(s): D64.9 - Anemia, unspecif ied (8) Hyperuricemia Current Visit: No Status: Acute Assessment and plan: August 25. Uric acid level was 10.0 on 08/17/2018. Continue allopurinol. - Subjective Interval history: August 25. She has no new complaints. She is dyspneic. - Constitutional Vitals: Temp Pulse Resp BP Pulse Ox 97.9 F 71 18 138/59 91 08/25/18 06:48 08/25/18 09:54 08/25/18 13:24 08/25/18 09:54 08/25/18 17:48 Exam: She is wearing oxymask. Her speech is broken from dyspnea. Her affect is ch eerful. I reviewed her medications and lab results. Internal Medicine: Result - Labs CBC & Chem 7: 08/24/18 05:00 08/24/18 05:00 - ABG Interpretation ABG results: PT/INR, D-dimer PT 37.2 Seconds (9.4-12.1) H 08/24/18 05:00 Consult Discharge Plan - Plan Referrals: Poli Garcia MD [Primary Care Provider] - 1 week
[2018-08-26] MEDS: ceFAZolin 1,000 MG in Water for inj. (sterile) 20 ML 10 ML IVP SCH ×2 (05:31→16:51)
[2018-08-26 05:52] LABS: Basophils % 0.1 %; Hemoglobin 7.8 g/dL (11.5-15.4); Immature Granulocytes % 3.2 % (0-4); Mean Corpuscular HGB Conc 31.2 g/dL (31.6-35.5); Mean Corpuscular Hemoglobin 31.5 pg (28.0-33.3); Mean Corpuscular Volume 100.8 fL (83.0-100.0); Mean Platelet Volume 9.9 fL (9.4-12.4); Monocytes # 0.6 K/mcL (0.0-1.3); Monocytes % 3.6 %; Nucleated Red Blood Cells 0.3 /100 WBC (0); Platelet Count 220 K/mcL (140-400); Red Blood Count 2.48 M/mcL (3.82-4.97); Red Cell Distribution Width 15.3 % (11.5-14.5); Segmented Neutrophils % 87.1 %
[2018-08-26 06:18] LABS: Neutrophils # 13.8 K/mcL (1.6-8.9)
[2018-08-26 06:21] LABS: INR 3.5
[2018-08-26 07:09] LABS: Blood Urea Nitrogen > 130 mg/dL (8-23); Carbon Dioxide 32 mEq/L (23-29); Chloride 98 mEq/L (98-107); Glucose 151 mg/dL (70-105); Potassium 4.5 mEq/L (3.5-5.1); Sodium 140 mEq/L (136-145); eGFR For Non-African Americans 12 (> 60)
[2018-08-26] MEDS: Cholecalciferol (D-3) 1,000 UNIT TABLET PO SCH (09:56)
[2018-08-26] MEDS: Lactobacillus 1 EACH CAP.SPRINK PO SCH ×2 (09:56→20:00)
[2018-08-26] MEDS: Aspirin Enteric Coated 81 MG Tablet PO SCH (09:56)
[2018-08-26] MEDS: predniSONE 10 MG TABLET PO SCH (09:59)
[2018-08-26] MEDS: Diltiazem CD (24hr) 120 MG CAPSULE PO SCH (10:00)
[2018-08-26] MEDS: Tiotropium Br/Olodaterol Hcl [Stiolto Respimat Inhal IH SCH (10:06)
[2018-08-26] MEDS: MOMETASONE FUROATE 100 mcg Inhaler IH SCH ×2 (10:48→20:54)
--- NOTE | 2018-08-26 15:34 | Internal Med Progress Note ---
Date of Encounter: 08/26/18 Time of Encounter: 15:25 - Assessment and plan (1) MSSA bacteremia Current Visit: No Status: Acute Assessment and plan: August 25. Continue IV With Lactobacillus through 09/12/2018. (2) Pneumonia Current Visit: No Status: Acute Assessment and plan: August 25. Continue q.o.d. Levaquin through 08/30/2018. Qualifiers: Pneumonia type: aspiration pneumonia Aspiration pneumonia type: due to regurgitated food Laterality: right Lung location: lower lobe of lung Qualified Code(s): J69.0 - Pneumonitis due to inhalation of food and vomit (3) Diastolic heart failure Current Visit: No Status: Acute Assessment and plan: August 25. Continue labetalol and remain off Lasix due to acute on chronic renal failure. Check BN peptide and other labs in a.m. August 26. BN peptide slightly higher at 349. Continue to monitor. Qualifiers: Heart failure chronicity: acute on chronic Qualified Code(s): I50.33 - Acute on chronic diastolic (congestive) heart failure (4) Hypertension Current Visit: No Status: Chronic Assessment and plan: August 25. Continue labetalol and diltiazem Qualifiers: Hypertension type: essential hypertension Qualified Code(s): I10 - Essential (primary) hypertension (5) Acute kidney injury superimposed on CKD Current Visit: No Status: Acute Assessment and plan: August 25. Monitor renal indices. August 26. Creatinine is risen to 3.50 with estimated GFR of 12. I encouraged her to take in more oral fluids. I told her she was nearing need for dialysis. (6) PAF (paroxysmal atrial fibrillation) Current Visit: No Status: Acute Assessment and plan: August 25. Continue labetalol and warfarin. August 26. Hold warfarin until INR decreases. (7) Anemia Current Visit: No Status: Acute Assessment and plan: August 25. Anemia testing in July showed iron 35, transferrin saturation 15%, transferrin 170, ferritin 648, B12 775, and folate 16.6. Anemia likely due to chronic kidney disease. Continue Aranesp. Qualifiers: Anemia type: unspecified type Qualified Code(s): D64.9 - Anemia, unspecified (8) Hyperuricemia Current Visit: No Status: Acute Assessment and plan: August 25. Uric acid level was 10.0 on 08/17/2018. Continue allopurinol. - Subjective Interval history: August 25. She has no new complaints. She is dyspneic. August 26. She has no new complaints. - Constitutional Vitals: Temp Pulse Resp BP Pulse Ox 97.6 F 68 22 137/72 95 08/26/18 06:44 08/26/18 06:44 08/26/18 10:49 08/26/18 06:44 08/26/18 10:49 Exam: She is sitting in bed resting comfortably. Her affect is cheerful. She has broken speech because of dyspnea. I discussed with her results of labs drawn today. Internal Medicine: Result - Labs CBC & Chem 7: 08/26/18 05:30 08/26/18 05:30 Labs: Short CBC 08/26/18 Range/Units 05:30 WBC 15.8 H (4.3-11.1) K/mcL Hgb 7.8 L (11.5-15.4) g/dL Hct 25.0 L (35.3-44.9) % Plt Count 220 (140-400) K/mcL Neutrophils # 13.8 H (1.6-8.9) K/mcL BMP 08/26/18 05:30 Sodium 140 Potassium 4.5 Chloride 98 Carbon Dioxide 32 H BUN > 130 H Creatinine 3.50 H Glucose 151 H Calcium 9.0 - ABG Interpretation ABG results: PT/INR, D-dimer PT 39.0 Seconds (9.4-12.1) H 08/26/18 05:30 Consult Discharge Plan - Plan Referrals: Poli Garcia MD [Primary Care Provider] - 1 week
[2018-08-27] MEDS: ceFAZolin 1,000 MG in Water for inj. (sterile) 20 ML 10 ML IVP SCH (05:35)
[2018-08-27 06:37] LABS: Basophils % 0.1 %; Hematocrit 24.4 % (35.3-44.9); Hemoglobin 7.6 g/dL (11.5-15.4); Immature Granulocytes % 3.7 % (0-4); Lymphocytes # 1.2 K/mcL (0.6-4.6); Lymphocytes % 7.1 %; Mean Corpuscular HGB Conc 31.1 g/dL (31.6-35.5); Mean Corpuscular Hemoglobin 31.8 pg (28.0-33.3); Mean Corpuscular Volume 102.1 fL (83.0-100.0); Mean Platelet Volume 10.2 fL (9.4-12.4); Monocytes # 0.8 K/mcL (0.0-1.3); Monocytes % 4.7 %; Neutrophils # 14.3 K/mcL (1.6-8.9); Nucleated Red Blood Cells 0.3 /100 WBC (0); Platelet Count 181 K/mcL (140-400); Red Blood Count 2.39 M/mcL (3.82-4.97); Red Cell Distribution Width 15.3 % (11.5-14.5); Segmented Neutrophils % 84.4 %
[2018-08-27 07:00] LABS: Blood Urea Nitrogen > 130 mg/dL (8-23); Calcium 9.3 mg/dL (8.6-10.3); Carbon Dioxide 33 mEq/L (23-29); Chloride 100 mEq/L (98-107); Glucose 132 mg/dL (70-105); Potassium 4.8 mEq/L (3.5-5.1); Sodium 141 mEq/L (136-145); eGFR For Non-African Americans 13 (> 60)
[2018-08-27] MEDS: Aspirin Enteric Coated 81 MG Tablet PO SCH (09:07)
[2018-08-27] MEDS: levoFLOXacin 500 MG TABLET PO SCH (09:07)
[2018-08-27] MEDS: predniSONE 10 MG TABLET PO SCH (09:08)
[2018-08-27] MEDS: Lactobacillus 1 EACH CAP.SPRINK PO SCH ×2 (09:08→20:03)
[2018-08-27] MEDS: Diltiazem CD (24hr) 120 MG CAPSULE PO SCH (09:08)
[2018-08-27] MEDS: Cholecalciferol (D-3) 1,000 UNIT TABLET PO SCH (09:08)
[2018-08-27] MEDS: MOMETASONE FUROATE 100 mcg Inhaler IH SCH ×2 (09:53→21:30)
[2018-08-27] MEDS: Tiotropium Br/Olodaterol Hcl [Stiolto Respimat Inhal IH SCH (11:18)
--- NOTE | 2018-08-27 15:04 | Internal Med Progress Note ---
Date of Encounter: 08/27/18 Time of Encounter: 14:55 - Assessment and plan (1) MSSA bacteremia Current Visit: No Status: Acute Assessment and plan: August 25. Continue IV Ancef With Lactobacillus through 09/12/2018. (2) Pneumonia Current Visit: No Status: Acute Assessment and plan: August 25. Continue q.o.d. Levaquin through 08/30/2018. Qualifiers: Pneumonia type: aspiration pneumonia Aspiration pneumonia type: due to regurgitated food Laterality: right Lung location: lower lobe of lung Qualified Code(s): J69.0 - Pneumonitis due to inhalation of food and vomit (3) Diastolic heart failure Current Visit: No Status: Acute Assessment and plan: August 25. Continue labetalol and remain off Lasix due to acute on chronic renal failure. Check BN peptide and other labs in a.m. August 26. BN peptide slightly higher at 349. Continue to monitor. August 27. BN peptide slightly higher at 451. She is less dyspneic however. Continue to monitor. Qualifiers: Heart failure chronicity: acute on chronic Qualified Code(s): I50.33 - Acute on chronic diastolic (congestive) heart failure (4) Hypertension Current Visit: No Status: Chronic Assessment and plan: August 25. Continue labetalol and diltiazem Qualifiers: Hypertension type: essential hypertension Qualified Code(s): I10 - Essential (primary) hypertension (5) Acute kidney injury superimposed on CKD Current Visit: No Status: Acute Assessment and plan: August 25. Monitor renal indices. August 26. Creatinine is risen to 3.50 with estimated GFR of 12. I encouraged her to take in more oral fluids. I told her she was nearing need for dialysis. August 27. Creatinine 3.44 today. Continue to monitor. (6) PAF (paroxysmal atrial fibrillation) Current Visit: No Status: Acute Assessment and plan: August 25. Continue labetalol and warfarin. August 26. Hold warfarin until INR decreases. (7) Anemia Current Visit: No Status: Acute Assessment and plan: August 25. Anemia testing in July showed iron 35, transferrin saturation 15%, transferrin 170, ferritin 648, B12 775, and folate 16.6. Anemia likely due to chronic kidney disease. Continue Aranesp. Qualifiers: Anemia type: unspecified type Qualified Code(s): D64.9 - Anemia, unspecified (8) Hyperuricemia Current Visit: No Status: Acute Assessment and plan: August 25. Uric acid level was 10.0 on 08/17/2018. Continue allopurinol. - Subjective Interval history: August 25. She has no new complaints. She is dyspneic. August 26. She has no new complaints. August 27. She has no new complaints and states she feels better. - Constitutional Vitals: Temp Pulse Resp BP Pulse Ox 97.7 F 61 20 112/62 98 08/27/18 07:01 08/27/18 07:01 08/27/18 09:55 08/27/18 07:01 08/27/18 12:05 Exam: She is sitting a chair at bedside resting comfortably. She is wearing oxygen by nasal cannula with saturations 98-99%. She is slightly less dyspneic in conversation. I reviewed her medications and lab results. Internal Medicine: Result - Labs CBC & Chem 7: 08/27/18 05:45 08/27/18 05:45 Labs: Short CBC 08/27/18 Range/Units 05:45 WBC 16.9 H (4.3-11.1) K/mcL Hgb 7.6 L (11.5-15.4) g/dL Hct 24.4 L (35.3-44.9) % Plt Count 181 (140-400) K/mcL Neutrophils # 14.3 H (1.6-8.9) K/mcL BMP 08/27/18 05:45 Sodium 141 Potassium 4.8 Chloride 100 Carbon Dioxide 33 H BUN > 130 H Creatinine 3.44 H Glucose 132 H Calcium 9.3 - ABG Interpretation ABG results: PT/INR, D-dimer PT 39.0 Seconds (9.4-12.1) H 08/26/18 05:30 Consult Discharge Plan - Plan Referrals: Poli Garcia MD [Primary Care Provider] - 1 week
[2018-08-28] MEDS: ceFAZolin 1,000 MG in Water for inj. (sterile) 20 ML 10 ML IVP SCH (06:16)
[2018-08-28] MEDS: Cholecalciferol (D-3) 1,000 UNIT TABLET PO SCH (08:39)
[2018-08-28] MEDS: predniSONE 10 MG TABLET PO SCH (08:39)
[2018-08-28] MEDS: Lactobacillus 1 EACH CAP.SPRINK PO SCH ×2 (08:39→21:01)
[2018-08-28] MEDS: Diltiazem CD (24hr) 120 MG CAPSULE PO SCH (08:39)
[2018-08-28] MEDS: Aspirin Enteric Coated 81 MG Tablet PO SCH (08:39)
[2018-08-28] MEDS: MOMETASONE FUROATE 100 mcg Inhaler IH SCH ×2 (10:00→20:38)
[2018-08-28] MEDS: Tiotropium Br/Olodaterol Hcl [Stiolto Respimat Inhal IH SCH (17:24)
[2018-08-29] MEDS: ceFAZolin 1,000 MG in Water for inj. (sterile) 20 ML 10 ML IVP SCH (05:12)
[2018-08-29 06:25] LABS: Basophils % 0.2 %; Hematocrit 24.3 % (35.3-44.9); Hemoglobin 7.5 g/dL (11.5-15.4); Immature Granulocytes % 5.4 % (0-4); Lymphocytes # 0.7 K/mcL (0.6-4.6); Lymphocytes % 3.7 %; Mean Corpuscular HGB Conc 30.9 g/dL (31.6-35.5); Mean Corpuscular Hemoglobin 31.5 pg (28.0-33.3); Mean Corpuscular Volume 102.1 fL (83.0-100.0); Mean Platelet Volume 10.6 fL (9.4-12.4); Monocytes # 0.6 K/mcL (0.0-1.3); Monocytes % 2.9 %; Neutrophils # 16.5 K/mcL (1.6-8.9); Nucleated Red Blood Cells 0.5 /100 WBC (0); Platelet Count 201 K/mcL (140-400); Red Blood Count 2.38 M/mcL (3.82-4.97); Red Cell Distribution Width 15.5 % (11.5-14.5); Segmented Neutrophils % 87.8 %
[2018-08-29 06:39] LABS: INR 1.9; Prothrombin Time 21.3 Seconds (9.4-12.1)
[2018-08-29 06:55] LABS: Blood Urea Nitrogen > 130 mg/dL (8-23); Calcium 9.2 mg/dL (8.6-10.3); Carbon Dioxide 31 mEq/L (23-29); Chloride 98 mEq/L (98-107); Glucose 161 mg/dL (70-105); Potassium 4.9 mEq/L (3.5-5.1); Sodium 138 mEq/L (136-145); eGFR For Non-African Americans 14 (> 60)
[2018-08-29 07:17] LABS: Platelet Estimate Normal (Normal)
[2018-08-29] MEDS: predniSONE 10 MG TABLET PO SCH (09:45)
[2018-08-29] MEDS: Cholecalciferol (D-3) 1,000 UNIT TABLET PO SCH (09:45)
[2018-08-29] MEDS: Lactobacillus 1 EACH CAP.SPRINK PO SCH ×2 (09:45→20:08)
[2018-08-29] MEDS: Aspirin Enteric Coated 81 MG Tablet PO SCH (09:45)
[2018-08-29] MEDS: Diltiazem CD (24hr) 120 MG CAPSULE PO SCH (09:45)
[2018-08-29] MEDS: levoFLOXacin 500 MG TABLET PO SCH (09:46)
[2018-08-29] MEDS: Tiotropium Br/Olodaterol Hcl [Stiolto Respimat Inhal IH SCH (09:47)
[2018-08-29] MEDS: MOMETASONE FUROATE 100 mcg Inhaler IH SCH ×2 (09:53→22:44)
--- NOTE | 2018-08-29 10:28 | Internal Med Progress Note ---
Date of Encounter: 08/29/18 Time of Encounter: 10:20 - Assessment and plan (1) MSSA bacteremia Current Visit: No Status: Acute Assessment and plan: August 25. Continue IV Ancef With Lactobacillus through 09/12/2018. (2) Pneumonia Current Visit: No Status: Acute Assessment and plan: August 25. Continue q.o.d. Levaquin through 08/30/2018. Qualifiers: Pneumonia type: aspiration pneumonia Aspiration pneumonia type: due to regurgitated food Laterality: right Lung location: lower lobe of lung Qualified Code(s): J69.0 - Pneumonitis due to inhalation of food and vomit (3) Diastolic heart failure Current Visit: No Status: Acute Assessment and plan: August 25. Continue labetalol and remain off Lasix due to acute on chronic renal failure. Check BN peptide and other labs in a.m. August 26. BN peptide slightly higher at 349. Continue to monitor. August 27. BN peptide slightly higher at 451. She is less dyspneic however. Continue to monitor. August 29. BN peptide improved to 209. Continue present Rx. Qualifiers: Heart failure chronicity: acute on chronic Qualified Code(s): I50.33 - Acute on chronic diastolic (congestive) heart failure (4) Hypertension Current Visit: No Status: Chronic Assessment and plan: August 25. Continue labetalol and diltiazem Qualifiers: Hypertension type: essential hypertension Qualified Code(s): I10 - Essential (primary) hypertension (5) Acute kidney injury superimposed on CKD Current Visit: No Status: Acute Assessment and plan: August 25. Monitor renal indices. August 26. Creatinine is risen to 3.50 with estimated GFR of 12. I encouraged her to take in more oral fluids. I told her she was nearing need for dialysis. August 27. Creatinine 3.44 today. Continue to monitor. August 29. Creatinine slightly lower at 3.21. Continue present Rx (6) PAF (paroxysmal atrial fibrillation) Current Visit: No Status: Acute Assessment and plan: August 25. Continue labetalol and warfarin. August 26. Hold warfarin until INR decreases. August 29. INR 1.9. Restart Coumadin. (7) Anemia Current Visit: No Status: Acute Assessment and plan: August 25. Anemia testing in July showed iron 35, transferrin saturation 15%, transferrin 170, ferritin 648, B12 775, and folate 16.6. Anemia likely due to chronic kidney disease. Continue Aranesp. August 29. Hemoglobin minimally lower at 7.5. Continue to monitor. Qualifiers: Anemia type: unspecified type Qualified Code(s): D64.9 - Anemia, unspecified (8) Hyperuricemia Current Visit: No Status: Acute Assessment and plan: August 25. Uric acid level was 10.0 on 08/17/2018. Continue allopurinol. - Subjective Interval history: August 25. She has no new complaints. She is dyspneic. August 26. She has no new complaints. August 27. She has no new complaints and states she feels better. August 29. She has no new complaints. - Constitutional Vitals: Temp Pulse Resp BP Pulse Ox 97.5 F L 69 18 143/80 94 08/29/18 07:29 08/29/18 07:29 08/29/18 09:54 08/29/18 07:29 08/29/18 10:08 Exam: She is sitting in a recliner chair at bedside wearing BiPAP. She appears in no acute distress. Her affect is overall cheerful. Extremities show trace to 1+ edema of the lower legs. I reviewed her medications and lab results. Internal Medicine: Result - Labs CBC & Chem 7: 08/29/18 05:10 08/29/18 05:10 Labs: Short CBC 08/29/18 Range/Units 05:10 WBC 18.8 H (4.3-11.1) K/mcL Hgb 7.5 L (11.5-15.4) g/dL Hct 24.3 L (35.3-44.9) % Plt Count 201 (140-400) K/mcL Neutrophils # 16.5 H (1.6-8.9) K/mcL BMP 08/29/18 05:10 Sodium 138 Potassium 4.9 Chloride 98 Carbon Dioxide 31 H BUN > 130 H Creatinine 3.21 H Glucose 161 H Calcium 9.2 - ABG Interpretation ABG results: PT/INR, D-dimer PT 21.3 Seconds (9.4-12.1) H 08/29/18 05:10 Consult Discharge Plan - Plan Referrals: Poli Garcia MD [Primary Care Provider] - 1 week
[2018-08-29] MEDS: *HR* Warfarin 2.5 MG TABLET PO SCH (17:17)
[2018-08-29] MEDS ORDERED: Simethicone 80 MG TAB.CHEW PO PRN (18:50)
[2018-08-29] MEDS: Ipratropium/Albuterol Neb 3 ML IH PRN (22:45)
[2018-08-29] MEDS: MOM Conc 10 ML UD.LIQ PO SCH (22:53)
[2018-08-30] MEDS: ceFAZolin 1,000 MG in Water for inj. (sterile) 20 ML 10 ML IVP SCH (06:42)
[2018-08-30] MEDS: Cholecalciferol (D-3) 1,000 UNIT TABLET PO SCH (08:28)
[2018-08-30] MEDS: Lactobacillus 1 EACH CAP.SPRINK PO SCH ×2 (08:28→19:46)
[2018-08-30] MEDS: Tiotropium Br/Olodaterol Hcl [Stiolto Respimat Inhal IH SCH (08:29)
[2018-08-30] MEDS: Aspirin Enteric Coated 81 MG Tablet PO SCH (08:29)
[2018-08-30] MEDS: Diltiazem CD (24hr) 120 MG CAPSULE PO SCH (08:29)
[2018-08-30] MEDS: predniSONE 10 MG TABLET PO SCH (08:29)
[2018-08-30] MEDS: MOMETASONE FUROATE 100 mcg Inhaler IH SCH ×2 (11:12→22:09)
[2018-08-30] MEDS: *HR* Warfarin 2.5 MG TABLET PO SCH (18:29)
[2018-08-30] MEDS: Albuterol 2.5 MG/3 ML NEBULIZER IH PRN (18:39)
[2018-08-31] MEDS: ceFAZolin 1,000 MG in Water for inj. (sterile) 20 ML 10 ML IVP SCH (05:59)
[2018-08-31 06:31] LABS: Hematocrit 24.7 % (35.3-44.9); Hemoglobin 7.4 g/dL (11.5-15.4); Mean Corpuscular Hemoglobin 31.4 pg (28.0-33.3); Mean Corpuscular Volume 104.7 fL (83.0-100.0); Mean Platelet Volume 10.3 fL (9.4-12.4); Nucleated Red Blood Cells 0.8 /100 WBC (0); Platelet Count 179 K/mcL (140-400); Red Blood Count 2.36 M/mcL (3.82-4.97); Red Cell Distribution Width 16.3 % (11.5-14.5)
[2018-08-31 06:43] LABS: INR 1.7; Prothrombin Time 19.2 Seconds (9.4-12.1)
[2018-08-31 06:59] LABS: Calcium 9.1 mg/dL (8.6-10.3); Potassium 5.3 mEq/L (3.5-5.1)
[2018-08-31 07:34] LABS: Lymphocytes # 1.9 K/mcL (0.6-4.6); Monocytes # 0.8 K/mcL (0.0-1.3); Neutrophils # 16.6 K/mcL (1.6-8.9)
[2018-08-31 07:36] LABS: Anisocytosis 1+ (Not Present); Hypersegmented Neutrophils Present (Not Present); Hypochromasia Present (Not Present)
[2018-08-31 07:37] LABS: Platelet Estimate Normal (Normal)
[2018-08-31] MEDS: predniSONE 10 MG TABLET PO SCH (08:55)
[2018-08-31] MEDS: Aspirin Enteric Coated 81 MG Tablet PO SCH (08:55)
[2018-08-31] MEDS: Lactobacillus 1 EACH CAP.SPRINK PO SCH ×2 (08:55→20:14)
[2018-08-31] MEDS: Cholecalciferol (D-3) 1,000 UNIT TABLET PO SCH (08:55)
[2018-08-31] MEDS: Diltiazem CD (24hr) 120 MG CAPSULE PO SCH (08:55)
[2018-08-31] MEDS: Tiotropium Br/Olodaterol Hcl [Stiolto Respimat Inhal IH SCH (08:58)
--- NOTE | 2018-08-31 09:32 | Internal Med Progress Note ---
Date of Encounter: 08/31/18 Time of Encounter: 09:15 - Assessment and plan (1) MSSA bacteremia Current Visit: No Status: Acute Assessment and plan: August 25. Continue IV Ancef With Lactobacillus through 09/12/2018. (2) Pneumonia Current Visit: No Status: Acute Assessment and plan: August 25. Continue q.o.d. Levaquin through 08/30/2018. August 31. Chest x-ray shows progression of right lung infiltrates. Levaquin course now completed. Pro-calcitonin level pending. I offered her transfer to another facility but she declined and is content to continue present Rx for now. Qualifiers: Pneumonia type: aspiration pneumonia Aspiration pneumonia type: due to regurgitated food Laterality: right Lung location: lower lobe of lung Qualified Code(s): J69.0 - Pneumonitis due to inhalation of food and vomit (3) Diastolic heart failure Current Visit: No Status: Acute Assessment and plan: August 25. Continue labetalol and remain off Lasix due to acute on chronic renal failure. Check BN peptide and other labs in a.m. August 26. BN peptide slightly higher at 349. Continue to monitor. August 27. BN peptide slightly higher at 451. She is less dyspneic however. Continue to monitor. August 29. BN peptide improved to 209. Continue present Rx. August 31. BN peptide further improved to 125. Continue present Rx Qualifiers: Heart failure chronicity: acute on chronic Qualified Code(s): I50.33 - Acute on chronic diastolic (congestive) heart failure (4) Hypertension Current Visit: No Status: Chronic Assessment and plan: August 25. Continue labetalol and diltiazem Qualifiers: Hypertension type: essential hypertension Qualified Code(s): I10 - Essential (primary) hypertension (5) Acute kidney injury superimposed on CKD Current Visit: No Status: Acute Assessment and plan: August 25. Monitor renal indices. August 26. Creatinine is risen to 3.50 with estimated GFR of 12. I encouraged her to take in more oral fluids. I told her she was nearing need for dialysis. August 27. Creatinine 3.44 today. Continue to monitor. August 29. Creatinine slightly lower at 3.21. Continue present Rx August 31. Creatinine further decreased to 2.99 with estimated GFR 15. Continue present Rx. (6) PAF (paroxysmal atrial fibrillation) Current Visit: No Status: Acute Assessment and plan: August 25. Continue labetalol and warfarin. August 26. Hold warfarin until INR decreases. August 29. INR 1.9. Restart Coumadin. August 31. INR 1.7. Increase Coumadin to 3 mg daily. (7) Anemia Current Visit: No Status: Acute Assessment and plan: August 25. Anemia testing in July showed iron 35, transferrin saturation 15%, transferrin 170, ferritin 648, B12 775, and folate 16.6. Anemia likely due to chronic kidney disease. Continue Aranesp. August 29. Hemoglobin minimally lower at 7.5. Continue to monitor. August 31. Hemoglobin 7.4. Hold aspirin Qualifiers: Anemia type: unspecified type Qualified Code(s): D64.9 - Anemia, unspecified (8) Hyperuricemia Current Visit: No Status: Acute Assessment and plan: August 25. Uric acid level was 10.0 on 08/17/2018. Continue allopurinol. - Subjective Interval history: August 25. She has no new complaints. She is dyspneic. August 26. She has no new complaints. August 27. She has no new complaints and states she feels better. August 29. She has no new complaints. August 31. She has no new complaints. - Constitutional Vitals: Temp Pulse Resp BP Pulse Ox 96.2 F L 62 22 134/78 98 08/31/18 07:27 08/31/18 07:27 08/31/18 07:27 08/31/18 07:27 08/31/18 07:27 Exam: She is sitting in a chair at bedside wearing oxygen by nasal cannula. Her saturation is 94-96%. She is able to converse and appears less dyspneic ov erall. Her lungs show no wheezes or crackles. I reviewed her medications and lab results. Internal Medicine: Result - Labs CBC & Chem 7: 08/31/18 06:00 08/31/18 06:00 Labs: Short CBC 08/31/18 Range/Units 06:00 WBC 19.3 H (4.3-11.1) K/mcL Hgb 7.4 L (11.5-15.4) g/dL Hct 24.7 L (35.3-44.9) % Plt Count 179 (140-400) K/mcL Neutrophils # 16.6 H (1.6-8.9) K/mcL BMP 08/31/18 06:00 Sodium 141 Potassium 5.3 H Chloride 102 Carbon Dioxide 34 H BUN 119 H Creatinine 2.99 H Glucose 83 Calcium 9.1 - ABG Interpretation ABG results: PT/INR, D-dimer PT 19.2 Seconds (9.4-12.1) H 08/31/18 06:00 - Impressions Impressions Chest X-Ray 08/30/18 18:47 IMPRESSION: Progressive right basilar opacification and effusion. Otherwise stable chest. Low lung volumes with persistent perihilar edema. D/ / Milton Aragon MD / Milton Aragon MD Interpreting Provider: Milton Aragon MD Consult Discharge Plan - Plan Referrals: Poli Garcia MD [Primary Care Provider] - 1 week
[2018-08-31] MEDS: MOMETASONE FUROATE 100 mcg Inhaler IH SCH (11:13)
[2018-08-31] MEDS: MOM Conc 10 ML UD.LIQ PO SCH (18:46)
[2018-08-31] MEDS: *HR* Warfarin 3 MG TABLET PO SCH (18:47)
[2018-09-01] MEDS: ceFAZolin 1,000 MG in Water for inj. (sterile) 20 ML 10 ML IVP SCH (05:03)
[2018-09-01 05:40] LABS: Basophils % 0.1 %; Eosinophils % 0.1 %; Hematocrit 24.2 % (35.3-44.9); Hemoglobin 7.6 g/dL (11.5-15.4); Immature Granulocytes % 4.8 % (0-4); Lymphocytes # 0.9 K/mcL (0.6-4.6); Lymphocytes % 4.4 %; Mean Corpuscular HGB Conc 31.4 g/dL (31.6-35.5); Mean Corpuscular Volume 105.2 fL (83.0-100.0); Mean Platelet Volume 10.7 fL (9.4-12.4); Monocytes % 4.8 %; Neutrophils # 17.6 K/mcL (1.6-8.9); Nucleated Red Blood Cells 0.4 /100 WBC (0); Platelet Count 170 K/mcL (140-400); Red Cell Distribution Width 16.7 % (11.5-14.5); Segmented Neutrophils % 85.8 %
[2018-09-01 06:00] LABS: BUN/Creatinine Ratio 39 (6-26); Blood Urea Nitrogen 117 mg/dL (8-23); eGFR For Non-African Americans 15 (> 60)
[2018-09-01] MEDS: MOMETASONE FUROATE 100 mcg Inhaler IH SCH ×3 (07:41→20:03)
[2018-09-01] MEDS: Cholecalciferol (D-3) 1,000 UNIT TABLET PO SCH (08:43)
[2018-09-01] MEDS: Diltiazem CD (24hr) 120 MG CAPSULE PO SCH (08:43)
[2018-09-01] MEDS: Lactobacillus 1 EACH CAP.SPRINK PO SCH ×2 (08:43→20:28)
[2018-09-01] MEDS: Tiotropium Br/Olodaterol Hcl [Stiolto Respimat Inhal IH SCH (08:44)
--- NOTE | 2018-09-01 15:52 | Internal Med Progress Note ---
Date of Encounter: 09/01/18 Time of Encounter: 15:40 - Assessment and plan (1) MSSA bacteremia Current Visit: No Status: Acute Assessment and plan: August 25. Continue IV Ancef With Lactobacillus through 09/12/2018. (2) Pneumonia Current Visit: No Status: Acute Assessment and plan: August 25. Continue q.o.d. Levaquin through 08/30/2018. August 31. Chest x-ray shows progression of right lung infiltrates. Levaquin course now completed. Pro-calcitonin level pending. I offered her transfer to another facility but she declined and is content to continue present Rx for now. September 01. I explained my concerns to patient and her daughter in the room about the rising WBC count and elevated BN peptide. We discussed transfer if her cond ition does not improve. She wishes to avoid transfer if possible. We agreed to repeat chest CT today and lab work in a.m. and have discussion again tomorrow. Qualifiers: Pneumonia type: aspiration pneumonia Aspiration pneumonia type: due to r egurgitated food Laterality: right Lung location: lower lobe of lung Qualified Code(s): J69.0 - Pneumonitis due to inhalation of food and vomit (3) Diastolic heart failure Current Visit: No Status: Acute Assessment and plan: August 25. Continue labetalol and remain off Lasix due to acute on chronic renal failure. Check BN peptide and other labs in a.m. August 26. BN peptide slightly higher at 349. Continue to monitor. August 27. BN peptide slightly higher at 451. She is less dyspneic however. Continue to monitor. August 29. BN peptide improved to 209. Continue present Rx. August 31. BN peptide further improved to 125. Continue present Rx Qualifiers: Heart failure chronicity: acute on chronic Qualified Code(s): I50.33 - Acute on chronic diastolic (congestive) heart failure (4) Hypertension Current Visit: No Status: Chronic Assessment and plan: August 25. Continue labetalol and diltiazem Qualifiers: Hypertension type: essential hypertension Qualified Code(s): I10 - Essential (primary) hypertension (5) Acute kidney injury superimposed on CKD Current Visit: No Status: Acute Assessment and plan: August 25. Monitor renal indices. August 26. Creatinine is risen to 3.50 with estimated GFR of 12. I encouraged her to take in more oral fluids. I told her she was nearing need for dialysis. August 27. Creatinine 3.44 today. Continue to monitor. August 29. Creatinine slightly lower at 3.21. Continue present Rx August 31. Creatinine further decreased to 2.99 with estimated GFR 15. Continue present Rx. September 01. Recheck labs in a.m. (6) PAF (paroxysmal atrial fibrillation) Current Visit: No Status: Acute Assessment and plan: August 25. Continue labetalol and warfarin. August 26. Hold warfarin until INR decreases. August 29. INR 1.9. Restart Coumadin. August 31. INR 1.7. Increase Coumadin to 3 mg daily. September 01. Recheck INR in a.m. (7) Anemia Current Visit: No Status: Acute Assessment and plan: August 25. Anemia testing in July showed iron 35, transferrin saturation 15%, transferrin 170, ferritin 648, B12 775, and folate 16.6. Anemia likely due to chronic kidney disease. Continue Aranesp. August 29. Hemoglobin minimally lower at 7.5. Continue to monitor. August 31. Hemoglobin 7.4. Hold aspirin Qualifiers: Anemia type: unspecified type Qualified Code(s): D64.9 - Anemia, unspecified (8) Hyperuricemia Current Visit: No Status: Acute Assessment and plan: August 25. Uric acid level was 10.0 on 08/17/2018. Continue allopurinol. September 01. Recheck uric acid level in a.m. - Subjective Interval history: August 25. She has no new complaints. She is dyspneic. August 26. She has no new complaints. August 27. She has no new complaints and states she feels better. August 29. She has no new complaints. August 31. She has no new complaints. September 01. She has no new complaints - Constitutional Vitals: Temp Pulse Resp BP Pulse Ox 97.5 F L 58 24 106/60 96 09/01/18 08:33 09/01/18 08:33 09/01/18 09:14 09/01/18 08:33 09/01/18 09:14 Exam: She is sitting comfortably in a chair at bedside with her legs elevated. She is wearing oxygen by nasal cannula with saturation 98-100% on bedside monitor. Her speech is broken because of dyspnea. I reviewed her medications and lab results. Internal Medicine: Result - Labs CBC & Chem 7: 09/01/18 05:05 09/01/18 05:05 Labs: Short CBC 09/01/18 Range/Units 05:05 WBC 20.5 H (4.3-11.1) K/mcL Hgb 7.6 L (11.5-15.4) g/dL Hct 24.2 L (35.3-44.9) % Plt Count 170 (140-400) K/mcL Neutrophils # 17.6 H (1.6-8.9) K/mcL BMP 09/01/18 05:05 BUN 117 H Creatinine 3.03 H - ABG Interpretation ABG results: PT/INR, D-dimer PT 19.2 Seconds (9.4-12.1) H 08/31/18 06:00 Consult Discharge Plan - Plan Referrals: Poli Garcia MD [Primary Care Provider] - 1 week
[2018-09-01] MEDS: *HR* Warfarin 3 MG TABLET PO SCH (18:21)
[2018-09-01] MEDS: Albuterol 2.5 MG/3 ML NEBULIZER IH PRN (20:02)
[2018-09-02] MEDS: ceFAZolin 1,000 MG in Water for inj. (sterile) 20 ML 10 ML IVP SCH (05:48)
[2018-09-02 06:03] LABS: Basophils % 0.1 %; Eosinophils # 0.2 K/mcL (0.0-0.6); Eosinophils % 0.7 %; Hematocrit 24.1 % (35.3-44.9); Hemoglobin 7.3 g/dL (11.5-15.4); Immature Granulocytes % 2.8 % (0-4); Lymphocytes # 0.8 K/mcL (0.6-4.6); Lymphocytes % 3.3 %; Mean Corpuscular HGB Conc 30.3 g/dL (31.6-35.5); Mean Corpuscular Hemoglobin 31.7 pg (28.0-33.3); Mean Corpuscular Volume 104.8 fL (83.0-100.0); Mean Platelet Volume 10.6 fL (9.4-12.4); Monocytes # 1.3 K/mcL (0.0-1.3); Monocytes % 5.6 %; Nucleated Red Blood Cells 0.2 /100 WBC (0); Platelet Count 147 K/mcL (140-400); Red Cell Distribution Width 16.8 % (11.5-14.5); Segmented Neutrophils % 87.5 %
[2018-09-02 06:23] LABS: INR 2.4; Prothrombin Time 27.6 Seconds (9.4-12.1)
[2018-09-02 07:32] LABS: Albumin 2.9 g/dL (3.5-5.7); Albumin/Globulin Ratio 1.5 (1.1-2.2); Bilirubin,Total 0.4 mg/dL (0.3-1.0); Calcium 9.6 mg/dL (8.6-10.3); Potassium 5.5 mEq/L (3.5-5.1); Total Protein 4.9 g/dL (6.4-8.9)
[2018-09-02] MEDS: MOMETASONE FUROATE 100 mcg Inhaler IH SCH (08:58)
--- NOTE | 2018-09-02 11:27 | Discharge Summary ---
Orders not resulted at time of discharge: Pending orders 09/02/18 05:40 Procalcitonin Routine Date of Encounter: 09/02/18 Time of Encounter: 11:10 - Discharge Diagnosis (1) MSSA bacteremia Priority: Primary Status: Acute (2) Pneumonia Priority: Secondary Status: Acute Qualifiers: Pneumonia type: aspiration pneumonia Aspiration pneumonia type: due to regurgitated food Laterality: right Lung location: lower lobe of lung Qualified Code(s): J69.0 - Pneumonitis due to inhalation of food and vomit (3) Diastolic heart failure Priority: Secondary Status: Acute Qualifiers: Heart failure chronicity: acute on chronic Qualified Code(s): I50.33 - Acute on chronic diastolic (congestive) heart failure (4) Hypertension Priority: Secondary Status: Chronic Qualifiers: Hypertension type: essential hypertension Qualified Code(s): I10 - Essential (primary) hypertension (5) Acute kidney injury superimposed on CKD Priority: Secondary Status: Acute (6) PAF (paroxysmal atrial fibrillation) Priority: Secondary Status: Chronic (7) Anemia Priority: Secondary Status: Chronic Qualifiers: Anemia type: unspecified type Qualified Code(s): D64.9 - Anemia, unspecified (8) Hyperuricemia Priority: Secondary Status: Acute Hospital course: Ms. Staples is a 82 year old female who returned to [facility] swing bed yesterday following a August 20- hospitalization at [facility] for worsening respiratory status. She had previously been in [facility] swing bed August 16- following an [facility] hospitalization August 06-August 16 for respiratory failure, pneumonia hypoxemia, and diastolic heart failure. During her most recent [facility] stay she had pulmonary consult with bronchoscopy 08/22/2018 showing possible aspiration but no significant infection. She was discharged on oral Levaquin in addition to ongoing IV Kefzol for MSSA infection documented on previous [facility] hospitalization. She was seen by nephrology for worsening renal function and it was recommended Lasix be discontinued. I saw her on August 24 and performed the swing bed readmission history and physical. She continued Levaquin through August 30 as recommended by [facility] staff. WBC gradually dennis from 16.9 on August 27 up to 22.9 on September 02. There was consistent left shift seen on WBC differential. Chest CT was repeated the afternoon of September 01 to further evaluate. There was increased consolidation seen in the right lung base with patchy airspace opacities noted diffusely for the remainder of the lungs. I had a long discussion with the patient the morning of September 02 and explained that she was gradually worsening and needed reevaluation by pulmonology and/or infectious disease. She did not wish to return to [facility] but was agreeable to go to [facility] for additional evaluation/treatment. Contact was made with [facility] and she will be transferred there as soon as a bed becomes available. - Time Spent with Patient Total time spent providing and/or coordinating discharge services: - Discharge Medications Prescriptions: No Action Montelukast [Singulair] 10 mg PO QPM Lansoprazole [Prevacid] 30 mg PO QAM Paricalcitol [Zemplar] 1 mcg PO MOWEFR Albuterol Neb [Proventil Neb] 2.5 mg IH QID PRN PRN Reason: Shortness Of Breath Labetalol HCl 200 mg PO BID Tiotropium Br/Olodaterol HCl [Stiolto Respimat Inhal [place]] 2 puff IH DAILY Albuterol Sulfate [Proair Hfa] 2 puff IH Q6H PRN PRN Reason: Shortness Of Breath Darbepoetin [place] in [place] [Aranesp] 125 mcg IJ QMONTH Fluticasone Propionate [Flovent Hfa] 1 puff IH BID Aspirin Enteric Coated [Aspirin EC] 81 mg PO DAILY #0 tablet. Diltiazem CD (24hr) [Cardizem CD] 120 mg PO DAILY #7 cap.er.24h Warfarin [Coumadin] 2.5 mg PO 1800 #7 tablet Ipratropium/Albuterol Neb [Duoneb] 3 ml IH [id number] PRN inhsol PRN Reason: Wheezing Furosemide [Lasix] 20 mg PO Q12HR #14 tablet Acetaminophen [Tylenol] 650 mg PO Q6HR PRN tablet PRN Reason: Mild Pain/Fever Cholecalciferol (D-3) [Vitamin D] 1,000 unit PO DAILY tablet Guaifenesin [Mucinex] 600 mg PO Q12H PRN #14 tab.er.12h PRN Reason: Congestion Cefazolin Sodium/Water [Cefazolin 1 G/10 ml-Water Syrg] 1 gm IV Q12HR 28 Days #56 syringe levoFLOXacin [Levaquin] 500 mg PO Q48H #4 tablet Home Medications: Lansoprazole [Prevacid] 30 mg PO QAM 11/15/17 [History] Montelukast [Singulair] 10 mg PO QPM 11/15/17 [History] Paricalcitol [Zemplar] 1 mcg PO MOWEFR 11/15/17 [History] Albuterol Neb [Proventil Neb] 2.5 mg IH QID PRN 06/14/18 [History] Albuterol Sulfate [Proair Hfa] 2 puff IH Q6H PRN 06/14/18 [History] Darbepoetin [place] in [place] [Aranesp] 125 mcg IJ QMONTH 06/14/18 [History] Labetalol HCl 200 mg PO BID 06/14/18 [History] Tiotropium Br/Olodaterol HCl [Stiolto Respimat Inhal [place]] 2 puff IH DAILY 06/14/18 [History] Fluticasone Propionate [Flovent Hfa] 1 puff IH BID 08/06/18 [History] Acetaminophen [Tylenol] 650 mg PO Q6HR PRN tablet 08/15/18 [Rx] Aspirin Enteric Coated [Aspirin EC] 81 mg PO DAILY #0 tablet. 08/15/18 [Rx] Cefazolin Sodium/Water [Cefazolin 1 G/10 ml-Water Syrg] 1 gm IV Q12HR 28 Days #56 syringe 08/15/18 [Rx] Cholecalciferol (D-3) [Vitamin D] 1,000 unit PO DAILY tablet 08/15/18 [Rx] Diltiazem CD (24hr) [Cardizem CD] 120 mg PO DAILY #7 cap.er.24h 08/15/18 [Rx] Furosemide [Lasix] 20 mg PO Q12HR #14 tablet 08/15/18 [Rx] Guaifenesin [Mucinex] 600 mg PO Q12H PRN #14 tab.er.12h 08/15/18 [Rx] Ipratropium/Albuterol Neb [Duoneb] 3 ml IH [id number] PRN inhsol 08/15/18 [Rx] Warfarin [Coumadin] 2.5 mg PO 1800 #7 tablet 08/15/18 [Rx] levoFLOXacin [Levaquin] 500 mg PO Q48H #4 tablet 08/23/18 [Rx] Allergies/Adverse Reactions: Allergy/AdvReac Type Severity Reaction Status Date / Time Penicillins Allergy "I SWELL Verified 08/06/18 12:58 UP" Date of admission: 08/23/18 16:12 Primary care physician: Poli Garcia MD Consults: 08/23/18 16:08 Consult to Occupational Therapy [CONS] Routine Comment: eval, develop, implement POC Reason for Consult: eval, develop, implement POC Does patient have active BEDREST order?: No Is patient medically & hemodynamically stable?: Yes Consult to Physical Therapy [CONS] Routine Comment: eval, develop, implement POC Reason for Consult: eval, develop, implement POC Does patient have active BEDREST order?: No Is patient medically & hemodynamically stable?: Yes Consult to Banquet Attendant [CONS] Routine Reason for SW Consult: may need HH upon discharge 08/23/18 18:23 Consult to Nutrition [CONS] Routine Comment: Consulting Provider: NUTRITION Reason for Dietary Consult: MST Score - Constitutional Vitals: Temp Pulse Resp BP Pulse Ox 97.6 F 70 16 116/61 96 09/02/18 06:40 09/02/18 06:40 09/02/18 09:00 09/02/18 06:40 09/02/18 09:00 - Patient Status Disposition: Transfer Other - Discharge Instructions
[2018-09-02 11:40] VITALS: BP 124/70
[2018-09-02] MEDS: Diltiazem CD (24hr) 120 MG CAPSULE PO SCH (11:42)
[2018-09-02] MEDS: Cholecalciferol (D-3) 1,000 UNIT TABLET PO SCH (11:42)
[2018-09-02] MEDS: Lactobacillus 1 EACH CAP.SPRINK PO SCH (11:42)
[2018-09-02] MEDS: Tiotropium Br/Olodaterol Hcl [Stiolto Respimat Inhal IH SCH (11:43)
[2018-09-22] MEDS ORDERED: Darbepoetin 150 MCG/0.3 ML SYRINGE SQ SCH (09:00)
== END 2018-09-02 14:50 | disposition other institution (70) | DRG 871 ==
LOC: INPPIK 16:12
PROVIDERS: ADMIT Internal Medicine; ATTEND Internal Medicine